=== PATIENT | female | born 1990 | race Caucasian/White ===

== ENCOUNTER 2024-04-19 14:43 | Emergency (ER) | payer OTHER, SELFPAY ==
[2024-04-19 14:45] VITALS: BP 147/111
--- NOTE | 2024-04-19 14:46 | ED.GENMED ---
ED Provider Triage
<Marin Marcelo PA-C - Last Filed: 04/19/24 14:53>
-
Patient seen by provider in Triage?: Seen in Triage
Attestation: A medical screening examination has been initiated by a qualified medical provider. Based on the assessment performed at this time, it has been determined that an emergent medical condition may exist and the patient has been informed
that further medical evaluation and possible additional diagnostic testing may be needed.
HPI: 33-year-old female presenting to the emergency department for evaluation after had some abnormal uterine bleeding over the last week. Patient states that has been gradually worsening. Some mild lower abdominal pain and cramping. No other
concerns. States normal menstrual's regularly. No history of similar. Labs and ultrasound ordered.
GENERAL: Alert , in no apparent distress
EYE: No visual abnormalities.
NECK: Trachea midline
ENT: No visible abnormalities.
LUNGS: No acute respiratory distress
NEUROLOGICAL: Alert and oriented
SKIN: Skin intact. No visible changes.
MUSCULOSKELETAL: Moving extremities normally
PSYCH: Normal and appropriate interaction.
This is a medical evaluation conducted in person to initiate diagnostic evaluation and provide initial therapeutics. Please see further documentation by the treating clinician.
History of Present Illness
<Marin Marcelo PA-C - Last Filed: 04/19/24 14:53>
General
Chief Complaint: Vaginal Bleeding
Time Seen by Provider: 04/19/24 18:46
<Tracy Chamberlain PA-C - Last Filed: 04/19/24 23:43>
General
Source: patient
Exam Limitations: none
Nursing documentation reviewed up to this point in time: agreed with
History of Present Illness
History of Present Illness:
pt is a 33 y/o F with h/o ADD, gerd, back pain
here with vaginal bleeding
had period 3.5 weeks ago and it started out funny with brownish blood rather than her normal period, then went into what seemed like her normal period and then tapered off but a few days later she got the brownish discharge again
she has had intemrittent bleeding since
but then after intercourse 2 days ago it turned bighter and a little heavier
she has had some chroinc back pain and is worried she has cancer
Past History
<Marin Marcelo PA-C - Last Filed: 04/19/24 14:53>
Past History
ED Past Medical History: GERD
ED Past Surgical History: None
Social History
Tobacco: Smoker
Living: with family
Employment: Employed
Review of Systems
<Tracy Chamberlain PA-C - Last Filed: 04/19/24 23:43>
Review of Systems
Allergies reviewed?: Yes
All Other Systems: Not applicable
Phy Exam
<FIDENCIO Rome Last Filed: 04/19/24 23:43>
Physical Exam
Physical Exam:
GENERAL: Alert , in no apparent distress, anxious
EYE: pupils equal and reactive
NECK: Supple
ENT: o/p clr, mmm.
CARDIAC: Regular rate and rhythm .
LUNGS: Clear breath sounds bilaterally, no acute respiratory distress, no wheezes/rales/rhonchi
ABDOMEN: Soft, without focal tenderness, no r/g, no cvat, normal bowel sounds
pelvic: trace brown bleeding in vault; trace red blood at os; cervix mildly tender, no adnexal tenderness; no chandelier sign; no lacerations
NEUROLOGICAL: Alert and oriented, no focal neuro deficits
SKIN: Warm and dry, skin intact.
MUSCULOSKELETAL: No edema, well perfused. neg maribel's sign
PSYCH: Normal and appropriate interaction.
Course
<FIDENCIO Nixon Last Filed: 04/19/24 14:53>
Orders/Labs/Results
Orders:
Orders
04/19/24 14:46
Test Result ONCE
04/19/24 14:57
Basic Metabolic Panel Urgent
Complete Blood Count/With Diff Urgent
HCG, Serum Qualitative Screen Urgent
04/19/24 17:28
US Transvaginal [US Pelvis W Transvag Combined] Urgent
Comment:
Reason For Exam: dyfunctional uterine bleed
04/19/24 19:58
Chlamydia/GC by PCR Urgent
ANNEL Source: Endo-Cervical
Specimen Description:
Source:: ENDOCERVICAL
Date Specimen was Collected: 04/19/24
Time Specimen was Collected: 19:57
Abnormal Lab Results
04/19/24
14:57
WBC 4.5 L 10^3/uL
(4.8-10.8)
MCH 32.8 H pg
(27.0-31.0)
Glucose 105 H mg/dl
(70-99)
04/19/24 14:57
04/19/24 14:57
Vital Signs
Initial and Last Documented VS:
Initial Vital Signs
Temp Pulse Resp BP Pulse Ox
98.2 F 135 16 147/111 100
04/19/24 14:45 04/19/24 14:45 04/19/24 14:45 04/19/24 14:45 04/19/24 14:45
Last Documented Vital Signs
Temp Pulse Resp BP Pulse Ox
98.2 F 68 18 128/91 99
04/19/24 14:45 04/19/24 19:55 04/19/24 19:55 04/19/24 19:00 04/19/24 19:45
<Tracy Chamberlain PA-C - Last Filed: 04/19/24 23:43>
Orders/Labs/Results
Orders:
Orders
04/19/24 14:46
Test Result ONCE
04/19/24 14:57
Basic Metabolic Panel Urgent
Complete Blood Count/With Diff Urgent
HCG, Serum Qualitative Screen Urgent
04/19/24 17:28
US Transvaginal [US Pelvis W Transvag Combined] Urgent
Comment:
Reason For Exam: dyfunctional uterine bleed
04/19/24 19:58
Chlamydia/GC by PCR Urgent
ANNEL Source: Endo-Cervical
Specimen Description:
Source:: ENDOCERVICAL
Date Specimen was Collected: 04/19/24
Time Specimen was Collected: 19:57
Abnormal Lab Results
04/19/24
14:57
WBC 4.5 L 10^3/uL
(4.8-10.8)
MCH 32.8 H pg
(27.0-31.0)
Glucose 105 H mg/dl
(70-99)
04/19/24 14:57
04/19/24 14:57
Vital Signs
Initial and Last Documented VS:
Initial Vital Signs
Temp Pulse Resp BP Pulse Ox
98.2 F 135 16 147/111 100
04/19/24 14:45 04/19/24 14:45 04/19/24 14:45 04/19/24 14:45 04/19/24 14:45
Last Documented Vital Signs
Temp Pulse Resp BP Pulse Ox
98.2 F 68 18 128/91 99
04/19/24 14:45 04/19/24 19:55 04/19/24 19:55 04/19/24 19:00 04/19/24 19:45
<Tracy Chamberlain PA-C - Last Filed: 04/19/24 23:43>
MDM/Problems Addressed
Differential Diagnosis Includes:
DUB, hormone imbalance, ectopic pregancy, vaingal laceration, endometrial hpyerplasia
MDM/Problems Addressed:
33 y/o F with abnormal bleeding, brown/red blood off and on for the past 3 weks
not large volume
no clots
no lightheadedness
no pelvic boris
some lower back pain that is chronic
well appearing but anxious
nontender abdomen
hg normal
hcg neg
us normal
elvic with brown blood, trace red blood
some mild cervical tendenress
do not suspect cervicitis; but will test for gc/ct
no lacerations
d/c home outpatient gyne f/u.
<Tracy Chamberlain PA-C - Last Filed: 04/19/24 23:43>
*Critical Care Note
Total Time (30-74mins, 75-104mins- exclusive of procedures): Not Applicable
ED Attending Note
<Marin Marcelo PA-C - Last Filed: 04/19/24 14:53>
-
Portions of this chart may have been created with voice recognition software.� Occasional wrong word or��sound alike� substitutions may have occurred due to the inherent limitations of voice recognition software.
Discharge Plan
Departure
Patient Disposition: Home (Routine Discharge)
Date of Disposition: 04/19/24
Time of Disposition: 19:55
Patient with high blood pressure during this ER visit?: No
Condition: Fair
Covid-19: Not Applicable
Discharge Problem:
DUB (dysfunctional uterine bleeding)
Instructions: Bleeding Between Periods
Prescriptions:
No Action
oxycodone-acetaminophen 5 MG/325 MG tablet
1 - 2 tab PO Q4HPRN PRN (Reason: pain) Qty: 10 0RF
doxylamine-pyridoxine (vit B6) [Diclegis] 1 EACH tablet,delayed release (DR/EC)
2 tab PO HS Qty: 30 0RF
Referrals:
Ianieri,Susy E., DO [Active] - Follow up in 1 week (OB/GYNE)
Activity Restrictions/Additional Instructions:
YOUR BLOOD WORK AND ULTRASOUND WERE REASSURING
SOMETIMES WE ARE NOT SURE THE CAUSE OF ABNORMAL BLEEDING
FOLOW UP WITH YOUR OB/GYNE OR FAMILY DOCTOR NEEDED IF THIS CONTINUES
RETURN FOR HEAVY BLEEIDNG (MORE THAN 1 PAD SOAKED FRONT TO BACK/SIDE TO SIDE OVER 1 HOUR FOR 2 HOURS IN A ROW OR MORE) OR ANY COCNERNS.
Interventions
Interventions:
*Risk Screen - Suicide Last Done: 04/19/24 14:45
*General Assessment Last Done: 04/19/24 14:45
*Neglect/Abuse Screening Last Done: 04/19/24 14:45
ED- Fall Risk Assessment Last Done: 04/19/24 18:51
*ED COVID-19 Vaccine History Last Done: 04/19/24 20:03
*Nursing Disposition Last Done: 04/19/24 20:03
ED-Female Genitourinary Assessment Last Done: 04/19/24 18:51
Discharge Date and Time
Print Language: HEBREW
[2024-04-19 15:04] LABS: % Basophils 0.4 % (0-2); % Eosinophils 0.7 % (0-6); % Immature Granulocytes 0.2 % (0-0.5); % Lymphocytes 39.4 % (20.5-51.1); % Monocytes 7.5 % (1.7-9.3); % Neutrophils 51.8 % (42.2-75.2); Absolute Lymphocytes 1.8 10^3/uL (1.2-3.4); Absolute Monocytes 0.3 10^3/uL (0.1-0.6); Absolute Neutrophils 2.3 10^3/uL (1.4-6.5); Hematocrit 43.1 % (37.0-47.0); Hemoglobin 15.4 g/dL (12.0-16.0); Mean Corp Hgb Conc. 35.7 g/dL (33.0-37.0); Mean Corpuscular Hgb 32.8 pg (27.0-31.0); Mean Corpuscular Volume 91.9 fL (81.0-99.0); Mean Platelet Volume 9.1 fL (7.4-10.4); Nucleated Red Blood Cells % 0 %; Platelet Count 239 10^3/uL (130-400); Red Blood Cell Count 4.69 10^6/uL (4.20-5.40); Red Cell Dist. Width 12.8 % (11.5-14.5); White Blood Cell Count 4.5 10^3/uL (4.8-10.8)
[2024-04-19 15:22] LABS: Blood Urea Nitrogen 12 mg/dl (7-17); Carbon Dioxide 28 mmol/L (22-30); Chloride 102 mmol/L (98-107); Glucose 105 mg/dl (70-99); HCG, Serum Qualitative Screen Negative; Potassium 4.7 mmol/L (3.5-5.1); Sodium 140 mmol/L (135-145); eGFR > 60.00
[2024-04-19 18:39] VITALS: BP 117/87
[2024-04-19 18:51] VITALS: BMI 20.2
[2024-04-19 19:00] VITALS: BP 128/91
== END 2024-04-19 20:03 | disposition home or self-care (01) ==
LOC: EMR 14:43
PROVIDERS: Physician Assistant Medical; EMERGENCY PHYSICIAN Emergency Medicine; FAMILY PHYSICIAN Family Medicine
DX: N93.8 Other specified abnormal uterine and vaginal bleeding (principal); K21.9 Gastro-esophageal reflux disease without esophagitis; F17.200 Nicotine dependence, unspecified, uncomplicated
CPT/HCPCS: 99284; 76830; 76856; 80048; 84703; 85025; 87491; 87591

== ENCOUNTER 2024-07-02 12:00 | Emergency (ER) | payer OTHER, SELFPAY ==
[2024-07-02 12:24] VITALS: BP 123/88
--- NOTE | 2024-07-02 13:39 | ED.GENMED ---
History of Present Illness
General
Chief Complaint: Skin Surface Trauma
Source: patient
Time Seen by Provider: 07/02/24 13:12
History of Present Illness
History of Present Illness:
34-year-old female presenting to the emergency department for evaluation after she excellently cut her left index finger with a knife while trying to open up a package, while going to the bathroom to clean up her finger started feel lightheaded and
near syncopal and did fall forward to the ground striking the left forehead onto the sink and sustained a laceration through the left eyebrow. Patient does endorse a headache but states she never lost any consciousness, no vomiting, no vision
changes or any other injury sustained. She was able to place Steri-Strips over both the left index finger laceration and left forehead laceration. Tetanus is up-to-date. Patient is right-hand dominant.
Past History
Past History
ED Past Medical History: GERD
ED Past Surgical History: and Tonsilectomy
Social History
Tobacco: Smoker
Alcohol: Occasional
Drug: None
Personal: Partner
Living: with family
Employment: Employed
Review of Systems
Review of Systems
All Other Systems: ROS reviewed and negative except as documented in HPI and ROS
Phy Exam
Physical Exam
Physical Exam:
GENERAL: Alert , in no apparent distress
EYE: conjunctiva clear
Head: 1.5 cm partial thickness curvilinear laceration vertically oriented that goes through the eyebrow
NECK: Supple, no midline ttp
ENT: mmm.
LUNGS: no acute respiratory distress
NEUROLOGICAL: Alert and oriented
SKIN: Warm and dry, steri strips in place over a 5mm superficial laceration palmar surface left index finger, well approximated. no bleeding
MUSCULOSKELETAL: well perfused. FROM. NVI
PSYCH: Normal and appropriate interaction.
Scores
Heart Failure Risk
Heart Failure Risk Score: Not Applicable
Heart Score for Chest Pain Patients
STEMI patient?: Not applicable
Withdrawal Assessment of Alcohol
Withdrawal Assessment Completed?: Not applicable
Course
Vital Signs
Initial and Last Documented VS:
Initial Vital Signs
Temp Pulse Resp BP Pulse Ox
98.1 F 104 16 123/88 98
07/02/24 12:24 12 12:24 07/02/24 12:24 07/02/24 12:24 07/02/24 12:24
Last Documented Vital Signs
Temp Pulse Resp BP Pulse Ox
98.1 F 104 16 123/88 98
07/02/24 12:24 07/02/24 12:24 07/02/24 12:24 07/02/24 12:24 07/02/24 12:24
Procedures
Laceration Closure
Left Forehead:
Status of Wound: clean
Size of Wound in cm: 1.5
Description of Wound Edges: sharp
Preparation: cleaned with saline
Anesthesia: 1% Lidocaine with epi
Revision/Debridement: routine- no revision
Type of Closure: single layer closure
Skin Closure Material: 6-0 nylon
Number of sutures: 8
MDM/Problems Addressed
Differential Diagnosis Includes:
Simple laceration, concussion, contusion, vagal events, intracranial bleeding, calvarial fracture no concern for cardiogenic syncope
MDM/Problems Addressed:
34-year-old female presenting to the ER for evaluation of left index finger laceration sustained when she excellently cut herself with a knife, proceeded to have a vagal event without losing consciousness and sustained laceration to the left
forehead. Laceration of the left forehead was repaired as above without any difficulty. Suture removal in 5 to 7 days. Patient well-approximated the left index finger. No indication for further repair here. Discussed risk first benefit of CT of
the head imaging and patient ultimately agrees okay to defer at this time but we discussed neurologic return precautions to the ER
*Pulse Oximetry
Patient hypoxic: no
*Critical Care Note
Total Time (30-74mins, 75-104mins- exclusive of procedures): Not Applicable
ED Attending Note
-
Portions of this chart may have been created with voice recognition software.� Occasional wrong word or��sound alike� substitutions may have occurred due to the inherent limitations of voice recognition software.
Discharge Plan
Departure
Patient Disposition: Home (Routine Discharge)
Date of Disposition: 07/02/24
Time of Disposition: 13:39
Patient with high blood pressure during this ER visit?: No
Discharge Problem:
Laceration of eyebrow, left, Laceration of left index finger, Vagal reaction
Instructions: Laceration Repair With Stitches (DC)
Prescriptions:
No Action
oxycodone-acetaminophen 5 MG/325 MG tablet
1 - 2 tab PO Q4HPRN PRN (Reason: pain) Qty: 10 0RF
doxylamine-pyridoxine (vit B6) [Diclegis] 1 EACH tablet,delayed release (DR/EC)
2 tab PO HS Qty: 30 0RF
Referrals:
UNKNOWN - PT DOES,NOT KNOW [Family Provider] -
Activity Restrictions/Additional Instructions:
Suture removal in 5 to 7 days
Interventions
Interventions:
*Risk Screen - Suicide Last Done: 07/02/24 12:24
*Nursing Disposition Last Done: 07/02/24 13:54
ED-Skin Assessment Last Done: 07/02/24 13:45
Discharge Date and Time
Discharge Date/Time: 07/02/24 13:54
Print Language: [place]
== END 2024-07-02 13:54 | disposition home or self-care (01) ==
LOC: EMR 12:00
PROVIDERS: EMERGENCY PHYSICIAN Emergency Medicine
DX: S01.112A Laceration without foreign body of left eyelid and periocular area, initial encounter (principal); S61.211A Laceration without foreign body of left index finger without damage to nail, initial encounter; W26.0XXA Contact with knife, initial encounter; W18.39XA Other fall on same level, initial encounter; K21.9 Gastro-esophageal reflux disease without esophagitis; F17.200 Nicotine dependence, unspecified, uncomplicated
CPT/HCPCS: 12011; 99282

== ENCOUNTER 2024-07-08 10:50 | Emergency (ER) | payer OTHER, SELFPAY ==
[2024-07-08 11:02] VITALS: BP 129/86
[2024-07-08] MEDS: DECADRON 10 MG PO (12:09)
[2024-07-08] MEDS: TORADOL 30 MG IM (12:09)
--- NOTE | 2024-07-08 12:25 | ED.GENMED ---
History of Present Illness
General
Chief Complaint: Wound Check/Suture Removal
Source: patient
Exam Limitations: none
Time Seen by Provider: 07/08/24 11:42
Nursing documentation reviewed up to this point in time: agreed with
History of Present Illness
History of Present Illness:
34-year-old female presenting to the emergency department today for suture removal to the left forehead. Had a fall 1 week ago after feeling lightheaded was seen here in the ER had multiple stitches placed and is returning for suture removal. Also
was having some tingling decree sensation to the area above where the stitches were placed on the forehead. Denies additional neurologic symptoms no numbness or neck pain.
Past History
Past History
ED Past Medical History: GERD
ED Past Surgical History: and Tonsilectomy
Social History
Tobacco: Smoker
Alcohol: Occasional
Drug: None
Personal: Partner
Living: with family
Employment: Employed
Review of Systems
Review of Systems
Allergies reviewed?: Yes
All Other Systems: ROS reviewed and negative except as documented in HPI and ROS
Phy Exam
Physical Exam
Physical Exam:
GENERAL: Alert , in no apparent distress
EYE: pupils equal and reactive
NECK: Supple, no significant adenopathy.
ENT: Left forehead just above the eyebrow well-healing laceration [address] o/p clr, mmm.
CARDIAC: Regular rate and rhythm .
LUNGS: Clear breath sounds bilaterally, no acute respiratory distress, no wheezes/rales/rhonchi
ABDOMEN: Soft, without focal tenderness, no r/g, no cvat
NEUROLOGICAL: Alert and oriented, no focal neuro deficits
SKIN: Warm and dry, skin intact.
MUSCULOSKELETAL: No edema, well perfused.
PSYCH: Normal and appropriate interaction.
Course
Orders/Labs/Results
Orders:
Orders
07/08/24 11:42
CT Head W/o Iv Contrast Urgent
Comment:
Reason For Exam: left head pain after fall, progressive CORTES local
07/08/24 11:47
Dexamethasone [Decadron] 10 mg PO NOW STA
Ketorolac [Toradol] 30 mg IM NOW STA
Vital Signs
Initial and Last Documented VS:
Initial Vital Signs
Temp Pulse Resp BP Pulse Ox
98.2 F 78 20 129/86 100
07/08/24 11:02 07/08/24 11:02 07/08/24 11:02 07/08/24 11:02 07/08/24 11:02
Last Documented Vital Signs
Temp Pulse Resp BP Pulse Ox
98.2 F 78 20 129/86 100
07/08/24 11:02 07/08/24 11:02 07/08/24 11:02 07/08/24 11:02 07/08/24 11:02
Procedures
Other
Indication for procedure:: Suture removal to the left eyebrow
Procedure completed by: Myself
Consent form signed: No
If no, reason: Emergency procedure
Additional Procedure:
8 stitches removed with tweezers and scissors
MDM/Problems Addressed
MDM/Problems Addressed:
34-year-old female presenting to the emergency department today for suture removal of the left 8 in total removed without incident. She initially claimed to have numbness to the left forehead above the area. This likely representing irritation to
the nerve. CT scan does not show any emergent findings. Otherwise stitches removed and Dermabond placed over the area for protection. Otherwise stable for discharge. Return precautions given.
*Critical Care Note
Total Time (30-74mins, 75-104mins- exclusive of procedures): Not Applicable
ED Attending Note
-
Portions of this chart may have been created with voice recognition software.� Occasional wrong word or��sound alike� substitutions may have occurred due to the inherent limitations of voice recognition software.
Discharge Plan
Departure
Patient Disposition: Home (Routine Discharge)
Date of Disposition: 07/08/24
Time of Disposition: 12:53
Patient with high blood pressure during this ER visit?: No
Condition: Good
Covid-19: Not Applicable
Discharge Problem:
Visit for suture removal, Injury of trigeminal nerve
Instructions: Stitches Removal
Prescriptions:
No Action
oxycodone-acetaminophen 5 MG/325 MG tablet
1 - 2 tab PO Q4HPRN PRN (Reason: pain) Qty: 10 0RF
doxylamine-pyridoxine (vit B6) [Diclegis] 1 EACH tablet,delayed release (DR/EC)
2 tab PO HS Qty: 30 0RF
Referrals:
Alfonso Brown Jr., DO [Family Provider] -
Activity Restrictions/Additional Instructions:
You came to the emergency department today for suture removal. You had 8 sutures removed and Dermabond was placed. Please allow this to fall off on its own over the next week or so. Please also follow-up with neurology if there is any ongoing
neurologic symptoms to your forehead. Return for any worsening, new or concerning symptoms.
[facility]: Jane Knight DO Phone:�
Interventions
Interventions:
*Risk Screen - Suicide Last Done: 07/08/24 11:05
Discharge Date and Time
Print Language: MONGOLIAN
== END 2024-07-08 13:11 | disposition home or self-care (01) ==
LOC: EMR 10:50
PROVIDERS: EMERGENCY PHYSICIAN Emergency Medicine; FAMILY PHYSICIAN Family Medicine
DX: S01.112D Laceration without foreign body of left eyelid and periocular area, subsequent encounter (principal); S04.32 Injury of trigeminal nerve, left side; W19.XXXD Unspecified fall, subsequent encounter
CPT/HCPCS: 96372; 99284; 70450